=== PATIENT | male | born 1975 | race Caucasian/White ===

== ENCOUNTER → 2023-06-18 | Outpatient (CLI) | payer OTHER | LOC: M CARPUL 07:43 | PROVIDERS: ATTEND Physician Assistant | DX: R06.02 Shortness of breath (principal) ==

== ENCOUNTER → 2023-08-25 | Outpatient (REF) | payer OTHER ==
[~2023-08-25] MED LIST: ADVA115A; ALBU8.5H; CETI-24 PO; FAMO1TAB11 PO; FEXO-116; FLUT50SP17; PRED20TA PO
== END ==
LOC: M LAB REF 16:55
PROVIDERS: ATTEND Internal Medicine Nephrology
DX: N18.31 Chronic kidney disease, stage 3a (principal)

== ENCOUNTER → 2023-08-27 | Outpatient (REF) | payer OTHER ==
[2023-08-27 19:56] LABS: CREATININE, URINE 117.23 MG/DL
[2023-08-27 20:02] LABS: CREATININE CLEARANCE, URINE 92.3 ML/MIN (85-125); CREATININE, SERUM 1.5 MG/DL (0.70-1.30)
== END ==
LOC: M LAB REF 17:05
PROVIDERS: ATTEND Internal Medicine Nephrology
DX: N18.31 Chronic kidney disease, stage 3a (principal)

== ENCOUNTER → 2024-05-18 | Outpatient (CLI) | payer OTHER ==
[~2024-05-18] MED LIST changes: -FLUT50SP17; +FLUTISP
== END ==
LOC: M RAD 10:54
PROVIDERS: ATTEND Physician Assistant
DX: R91.8 Other nonspecific abnormal finding of lung field (principal); J84.10 Pulmonary fibrosis, unspecified

== ENCOUNTER → 2024-06-15 | Outpatient (CLI) | payer OTHER | LOC: M RAD 07:45 | PROVIDERS: ATTEND Internal Medicine Hematology & Oncology | DX: R79.1 Abnormal coagulation profile (principal); K76.89 Other specified diseases of liver ==

== ENCOUNTER → 2024-07-01 | Outpatient (CLI) | payer OTHER ==
[~2024-07-01] MED LIST changes: +PROHANCE 279.3MG/ML 15ML VIAL ONE; +PROHANCE 279.3MG/ML 5ML VIAL ONE
== END ==
LOC: M PLAIMG 07:03
PROVIDERS: ATTEND Internal Medicine Hematology & Oncology
DX: D69.6 Thrombocytopenia, unspecified (principal)